=== PATIENT | female | born 1985 | race Caucasian/White ===

== ENCOUNTER 2017-01-05 18:25 | Emergency (ER) | payer MEDICAID ==
--- NOTE | 2017-01-05 18:59 | ED Physician Chart ---
ED Chief Complaint/HPI - Patient Information Date Seen:: 01/05/17 Time Seen:: 18:45 Chief Complaint:: vaginal bleeding History of Present Illness:: Patient had onset of vaginal bleeding yesterday. It was initially slight amount of increased today. She saturated 1 pad today. She has lower abdominal pain. Patient is 6 para para 4 AB 1 Allergies:: Allergies Allergy/AdvReac Type Severity Reaction Status Date / Time No Known Allergies Allergy Verified 01/05/17 18:39 Vitals:: Vital Signs - 8 hr 01/05/17 18:25 Temp 97.1 F HR 54 RR 16 BP 106/74 O2 Sat % 99 Historian:: Patient Review:: Nurse's Note Reviewed ED Review of Systems - Review of Systems General/Constitutional: No fever, No chills Skin: No skin lesions Head: No headache Eyes: No loss of vision ENT: No earache Neck: No neck pain Cardio Vascular: No chest pain Pulmonary: No SOB GI: No nausea, No vomiting G/U: No dysuria [employer]: Abnormal vaginal bleeding Musculoskeletal: No bone or joint pain, No back pain Endocrine: No polyuria, No polydipsia Psychiatric: No prior psych history Hematopoietic: No bruising Allergic/Immuno: No urticaria Neurological: No syncope ED Past Medical History - Past Medical History Past Medical History: No significant medical hx Family History: None Social History: Non Smoker, No Alcohol Surgical History: Cholecystectomy, other Psychiatricy History: None (4 sections) Medication: Reviewed Family Medical History - Family Member Mother History Unknown: Yes ED Physical Exam - Physical Examination General/Constitutional: Well-developed, well-nourished, Alert, No distress Head: Atraumatic Eyes: Lids, conjuctiva normal, PERRL Skin: Nl inspection, No rash, No skin lesions, No ecchymosis ENMT: External ears, nose nl Neck: No nuchal rigidity Respiratory: Nl effort/Exclusion, Clear to Auscultation Cardio Vascular: RRR, No murmur, gallop, rubs Other GI comments:: lower abdominal tenderness : No CVA tenderness, NL external genitalia, No CMT, NL adnexa Other comments:: 1 out of 4 blood on examining glove; uterus not enlarged to palpation Extremities: Normal digits & nails Neuro/Psych: Alert/oriented, No focal deficits Misc: No paraspinal tenderness ED Labs/Radiology/EKG Results - Radiology Results Results: Laboratory Results - last 24 hr 01/05/17 01/05/17 01/05/17 19:05 19:05 19:05 WBC 8.8 RBC 4.07 Hgb 11.4 L Hct 34.2 L MCV 84.0 MCH 28.1 MCHC Differential 33.4 RDW 15.8 Plt Count 235 MPV 8.9 Neutrophils % 60.0 Lymphocytes % 29.0 Monocytes % 7.1 Eosinophils % 2.2 Basophils % 1.7 Beta HCG, Quant < 1 Blood Type O POSITIVE Antibody Screen NEGATIVE Laboratory Results - last 24 hr 01/05/17 01/05/17 01/05/17 19:05 19:05 19:05 WBC 8.8 RBC 4.07 Hgb 11.4 L Hct 34.2 L MCV 84.0 MCH 28.1 MCHC Differential 33.4 RDW 15.8 Plt Count 235 MPV 8.9 Neutrophils % 60.0 Lymphocytes % 29.0 Monocytes % 7.1 Eosinophils % 2.2 Basophils % 1.7 Beta HCG, Quant < 1 Blood Type O POSITIVE Antibody Screen NEGATIVE Comments:: Pelvic ultrasound is normal ED Assessment - Assessment General Assessment: The patient is not ED Septic Shock - . Is Septic Shock (SBP<90, OR Lactate>4 mmol\L) present?: No - <6hrs of presentation: Vital Signs: Vital Signs - 8 hr 01/05/17 18:25 Temp 97.1 F HR 54 RR 16 BP 106/74 O2 Sat % 99 ED Reassessment (Disposition) - Reassessment Reassessment Condition:: Unchanged - Diagnosis Diagnosis:: Dysfunctional uterine bleeding - Aftercare/Follow up Instructions Aftercare/Follow-Up Instructions:: Refer to Discharge Instructions - Patient Disposition Discharge/Transfer:: Home Condition at Disposition:: Stable, Unchanged
[2017-01-05 19:15] LABS: % BASOPHILS 1.7 % (0.0-2.0); % EOSINOPHILS 2.2 % (0.0-5.0); % MONOCYTES 7.1 % (2.0-10.0); HEMATOCRIT 34.2 % (41.0-60); HEMOGLOBIN 11.4 gm/dL (12-16); MEAN CORPUSCULAR HEMOGLOBIN 28.1 pg (27.0-31.0); MEAN CORPUSCULAR HGB CONC 33.4 pg (28.0-36.0); MEAN PLATELET VOLUME 8.9 fl; NEUTROPHILE ABSOLUTE 5.3 Th/cmm (1.8-8.0); PLATELET COUNT 235 Th/cmm (150-400); RED BLOOD COUNT 4.07 Mil/cmm (3.80-5.10); RED CELL DISTRIBUTION WIDTH 15.8 % (11.5-20.0); WHITE BLOOD COUNT 8.8 Th/cmm (4.8-10.8)
--- NOTE | 2017-01-06 08:36 | Diagnostic Imaging Report ---
Exam: Ultrasound examination of pelvis HISTORY: Vaginal bleed Findings: Real-time ultrasound summation of the pelvis was performed utilizing transvaginal technique. The study demonstrates normal echogenicity uterus measuring 10.8 x 4.8 x 5.7 cm diameter. Endometrial thickness is 9 mm. No free fluid is noted in cul-de-sac Adnexa is normal. The ovaries intact. Right ovary measures 3.3 x 1.7 x 1.1. Diameter. Left ovary measures 2.7 x 1.2 x 1.1 cm diameter. The impression: Essentially unremarkable examination of the pelvis, no evidence of for intrauterine gestational sac or pole. Clinical correlation and serial hCG titers recommended aerated
== END 2017-01-05 22:10 | disposition home or self-care (01) ==
LOC: ER 18:25
DX: N93.8 Other specified abnormal uterine and vaginal bleeding (principal); Z90.49 Acquired absence of other specified parts of digestive tract
CPT/HCPCS: 36415-UA; 76801-TC; 84702-TC; 85025-TC; 86850-TC; 86900-TC; 86901-TC